=== PATIENT | female | born 2000 | race Hispanic/Latino ===

== ENCOUNTER 2022-07-28 17:39 | Inpatient (IN) | payer OTHER ==
[~2022-07-28 17:39] MED LIST: Bupivacaine 0.25% HCL 30 ML VIAL ONE; Bupivacaine HCl 0.5%/Epinephrine 1:200,000/PF 30 ml Vial ONE; Bupivacaine PF 0.5% 30 ML VIAL ONE; ePHEDrine Sulfate 50 MG/10 ML VIAL ONE
[2022-07-28] MEDS ORDERED: Docusate 100 MG CAP PO PRN (17:51)
[2022-07-28] MEDS ORDERED: Zolpidem Tartrate 5 MG TAB PO PRN (17:51)
[2022-07-28] MEDS ORDERED: Misoprostol 200 MCG TAB PR PRN (17:51)
[2022-07-28] MEDS ORDERED: Diphenoxylate HCl/Atropine Tablet PO PRN (17:51)
[2022-07-28] MEDS ORDERED: Lidocaine 1% (PF) 30 ML VIAL SC PRN (17:51)
[2022-07-28] MEDS ORDERED: hydrALAZINE 20 MG/ML VIAL SLOW IVP PRN (17:51)
[2022-07-28] MEDS ORDERED: Carboprost 250 MCG/ML AMP IM PRN (17:51)
[2022-07-28] MEDS ORDERED: Ondansetron PF 4 MG/2 ML Vial IVP PRN (17:51)
[2022-07-28] MEDS ORDERED: Promethazine HCl 25 MG/ML VIAL IM PRN (17:51)
[2022-07-28] MEDS ORDERED: Methylergonovine 0.2 MG/ML VIAL IM PRN (17:51)
[2022-07-28] MEDS ORDERED: NS w/ Oxytocin 30 units 500 ML IV SCH ×2 (18:00)
[2022-07-28 18:21] VITALS: BMI 33.2
[2022-07-28 18:37] LABS: Hemoglobin 12.6 g/dL (12.0-15.5); Mean Corpuscular Hemoglobin 28.4 pg (27.0-33.0); Mean Corpuscular Volume 83.7 fl (81.6-98.3); Mean Platelet Volume 12.3 fl (7.4-10.4); Platelet Count 209 10x3/uL (150-450); RBC Distribution Width 14.6 % (11.5-14.5); Red Blood Cell (RBC) Count 4.43 10x6/uL (3.90-5.03); White Blood Cell (WBC) Count 10.2 10x3/uL (3.5-10.5)
[2022-07-28] MEDS: Misoprostol 100 MCG TAB PO SCH ×2 (19:12→23:03)
[2022-07-28 19:14] LABS: HBSAg Index 0.15 S/CO (0-0.99); Hep B Surf Ag Non-Reactive S/CO (NonReactive)
[2022-07-28 19:16] LABS: Syphilis Antibody Nonreactive (Nonreactive); Syphilis Antibody Index 0.03 S/CO (<1.00 Non-Reactive)
[2022-07-28 20:03] LABS: SARS-CoV-2 NAA Rapid Test Not Detected (NotDetected)
[2022-07-29] MEDS: Misoprostol 100 MCG TAB PO SCH (06:21)
[2022-07-29] MEDS ORDERED: Naloxone HCl 0.4 mg/ml Vial IVP PRN ×2 (07:31)
[2022-07-29] MEDS ORDERED: Fentanyl 2 mcg/Bup 0.1% Cadd 100 ML ONE (07:31)
[2022-07-29] MEDS ORDERED: Promethazine HCl 25 MG/ML VIAL IM PRN (07:31)
[2022-07-29] MEDS ORDERED: Moisturizing Cream (Eucerin) 113 GM JAR TOP PRN (07:31)
[2022-07-29] MEDS ORDERED: Lactated Ringer's 500 ML IV PRN (07:31)
[2022-07-29] MEDS ORDERED: Ondansetron PF 4 MG/2 ML Vial IVP PRN (07:31)
[2022-07-29] MEDS ORDERED: diphenhydrAMINE 50 MG/ML VIAL IVP PRN (07:31)
[2022-07-29] MEDS ORDERED: Acetaminophen 325 MG TAB PO PRN (07:31)
[2022-07-29] MEDS ORDERED: ePHEDrine Sulfate 50 MG/10 ML VIAL SLOW IVP PRN (07:31)
[2022-07-29] MEDS ORDERED: Communication Order-Pharmacy FS SCH (07:45)
[2022-07-29] MEDS: Fentanyl 2 mcg/Bupivacaine 0.1% Cassette 100 ML EPIDURAL SCH ×3 (08:03→22:13)
[2022-07-29] MEDS: Lactated Ringer's 1,000 ML IV SCH ×3 (08:10→17:04)
[2022-07-29] MEDS ORDERED: Penicillin G Potassium 5 MILL.UNITS in Sodium Chloride 0.9% 100 ML IVPB SCH (09:00)
[2022-07-29] MEDS ORDERED: Penicillin G Potassium 5 MILL.UNITS VIAL ONE (09:02)
[2022-07-29] MEDS: Penicillin G 2.5 MILL.units 2.5 MILL.UNITS in Premix Bag 1 BAG IVPB SCH ×4 (12:56→21:08)
[2022-07-30] MEDS ORDERED: Ampicillin 2 GM VIAL ONE (01:06)
[2022-07-30] MEDS ORDERED: Gentamicin 290 MG, Admixture Fee 1 EACH in Sodium Chloride 0.9% 100 ML IVPB SCH (01:30)
[2022-07-30] MEDS ORDERED: Ampicillin 2 GM in Sodium Chloride 0.9% 100 ML IVPB SCH (01:30)
[2022-07-30] MEDS: Penicillin G 2.5 MILL.units 2.5 MILL.UNITS in Premix Bag 1 BAG IVPB SCH (02:05)
[2022-07-30 02:31] LABS: pH (Cord, venous) 7.372 (7.250-7.350)
[2022-07-30] MEDS ORDERED: diphenhydrAMINE 25 MG CAP PO PRN (03:15)
[2022-07-30] MEDS ORDERED: Lanolin Ointment 7 GM TUBE TOP PRN (03:15)
[2022-07-30] MEDS ORDERED: Preparation H Ointment 28 GM TUBE PR PRN (03:15)
[2022-07-30] MEDS ORDERED: Milk Of Magnesia 30 ML UDCUP PO PRN (03:15)
[2022-07-30] MEDS ORDERED: Bisacodyl 10 MG SUPP PR PRN (03:15)
[2022-07-30] MEDS ORDERED: Benzocaine-Menthol 82.5 ML CAN TOP PRN (03:15)
[2022-07-30] MEDS ORDERED: Ondansetron PF 4 MG/2 ML Vial IVP PRN (03:15)
[2022-07-30] MEDS ORDERED: HYDROcodone/Acetaminophen 5/325 mg Tablet PO PRN ×2 (03:15)
[2022-07-30] MEDS ORDERED: Promethazine HCl 25 MG/ML VIAL IM PRN (03:15)
[2022-07-30] MEDS ORDERED: hydrALAZINE 20 MG/ML VIAL SLOW IVP PRN (03:15)
[2022-07-30] MEDS ORDERED: Boostrix 0.5 ML (Tdap) VIAL (>/=7 yrs of age) IM ONE (03:15)
[2022-07-30] MEDS ORDERED: Acetaminophen 325 MG TAB PO PRN (04:44)
[2022-07-30] MEDS: Docusate 100 MG CAP PO SCH ×2 (09:04→21:22)
[2022-07-30] MEDS: Prenatal Vitamin 1 TAB PO SCH (09:04)
[2022-07-30] MEDS: Ibuprofen 800 MG TAB PO SCH ×3 (13:44→21:22)
[2022-07-30] MEDS: Ferrous Sulfate 325 MG TAB PO SCH (18:57)
[2022-07-31] MEDS: Ibuprofen 800 MG TAB PO SCH ×2 (05:23→13:52)
[2022-07-31] MEDS: Ferrous Sulfate 325 MG TAB PO SCH ×2 (07:33→15:19)
[2022-07-31] MEDS: Lactated Ringer's 1,000 ML IV SCH (07:34)
[2022-07-31] MEDS: Misoprostol 100 MCG TAB PO SCH (07:34)
[2022-07-31] MEDS: Prenatal Vitamin 1 TAB PO SCH (08:12)
[2022-07-31] MEDS: Docusate 100 MG CAP PO SCH (08:12)
[2022-07-31 08:33] VITALS: BP 112/57; TEMP 97.4
== END 2022-07-31 16:10 | disposition home or self-care (01) | DRG 805 ==
LOC: CSHLD 17:39 → CSHPP 07-30 04:54
PROVIDERS: ADMIT Obstetrics & Gynecology; ATTEND Obstetrics & Gynecology
PROC: 10E0XZZ Delivery of Products of Conception, External Approach (ICD-10-PCS; principal; 2022-07-30)
DX: O42.02 Full-term premature rupture of membranes, onset of labor within 24 hours of rupture (principal); O41.1230 Chorioamnionitis, third trimester, not applicable or unspecified; Z37.0 Single live birth; O99.42 Diseases of the circulatory system complicating childbirth; O69.1XX0 Labor and delivery complicated by cord around neck, with compression, not applicable or unspecified; O76 Abnormality in fetal heart rate and rhythm complicating labor and delivery; Z3A.40 40 weeks gestation of pregnancy; Z20.822 Contact with and (suspected) exposure to COVID-19
CPT/HCPCS: 36415; 51702; 82805; 85027; 86780; 86850; 86900; 86901; 87340; J0290; J1580; J2405; J2540; J2590; J3490; J7120; S0020; U0002